=== PATIENT | female | born 1945 | race Caucasian/White ===

== ENCOUNTER → 2017-08-04 | Outpatient (CLI) | payer OTHER ==
[~2017-08-04] MED LIST: ALBU.083IS; ALBU90OI6 INH; AMLO5; Aspirin EC81 MG PO; BUDE.25 NEB; BUME2 PO; BUPR150T2; Bactrim Ds Tab1 EACH PO; Budeprion Xl300 MG; CHOL10002 PO; Diovan160 MG PO; FLUSAL2505 INH; FLUT1DIS5 INH; FURO80; GABA100 PO; GLYB5; HALCION; INSULANPEN SC; LISI20; LORA.5 PO; METF500; MIRT15; NITR.4TPA TOP; OXYC15ER PO; OXYC5; PIOG30 PO; POTA10T PO; POTCHL20ER; PRAV40 PO; Pravastatin Sod80 MG PO; RAME8 PO; Remeron45 MG PO; TIOT18 IH; Tylenol325 MG PO
== END | disposition home or self-care (01) ==
LOC: LAB 15:00 → LAB SHORT 15:00
DX: D51.8 Other vitamin B12 deficiency anemias (principal)
CPT/HCPCS: 82607; 82746

== ENCOUNTER 2018-02-13 11:34 | Emergency (ER) | payer OTHER ==
[~2018-02-13] VITALS: Ht 162.6 cm; Wt 59.0 kg
[2018-02-13 12:13] LABS: BASOPHILS ABSOLUTE AUTO 0.09 K/mm3 (0.00-0.23); BASOPHILS PERCENT AUTO 2 % (0-2); EOSINOPHILS ABSOLUTE AUTO 0.79 K/mm3 (0.00-0.68); EOSINOPHILS PERCENT AUTO 13 % (0-6); Hematocrit 37.3 % (33.0-51.0); Hemoglobin 11.7 g/dL (11.5-16.0); IMMATURE GRAN ABSOLUTE AUTO 0.01 K/mm3 (0.00-0.10); IMMATURE GRAN PERCENT AUTO 0 % (0-1); LYMPHOCYTES ABSOLUTE AUTO 1.84 K/mm3 (0.84-5.20); LYMPHOCYTES PERCENT AUTO 31 % (21-46); MONOCYTES ABSOLUTE AUTO 0.74 K/mm3 (0.16-1.47); MONOCYTES PERCENT AUTO 13 % (4-13); Mean Corpuscular HGB 30.2 pg (26.0-34.0); Mean Corpuscular HGB Conc 31.4 g/dL (31.5-36.5); Mean Corpuscular Volume 96 fL (80-100); Mean Platelet Volume 11.3 fL (9.1-12.4); NEUTROPHILS ABSOLUTE AUTO 2.41 K/mm3 (1.96-9.15); NEUTROPHILS PERCENT AUTO 41 % (41-73); Platelet Count 234 K/mm3 (150-400); RDW Coefficient Variation 13.2 % (11.7-14.2); RDW Standard Deviation 46.5 fL (35.1-46.3); Red Blood Cell Count 3.88 M/mm3 (3.80-5.20); White Blood Cell Count 5.88 K/mm3 (4.00-11.30)
[2018-02-13 12:29] LABS: Albumin, Blood 3.5 g/dL (3.4-5.0); Albumin/Globulin Ratio 0.9 (0.8-1.8); Bilirubin, Total 0.2 mg/dL (0.1-1.0); Calcium, Blood 8.9 mg/dL (8.5-10.1); Creatinine, Blood 1.2 mg/dL (0.40-1.00); Globulin, Blood 3.9 g/dL (2.2-4.0); Potassium, Blood 3.9 mmol/L (3.5-5.5); Total Protein, Blood 7.4 g/dL (6.4-8.2)
== END 2018-02-13 15:56 | disposition home or self-care (01) ==
LOC: ER 11:34
PROVIDERS: Emergency Medicine
DX: L97.929 Non-pressure chronic ulcer of unspecified part of left lower leg with unspecified severity (principal); Z87.891 Personal history of nicotine dependence; Z88.8 Allergy status to other drugs, medicaments and biological substances; Z79.899 Other long term (current) drug therapy; Z79.82 Long term (current) use of aspirin
CPT/HCPCS: 36415; 80053; 83605; 85025; 99283

== ENCOUNTER 2018-02-16 07:40 | Day surgery (SDC) | payer OTHER | END 2018-02-16 22:48 | disposition home or self-care (01) | LOC: WOUND 07:40 | DX: L97.822 Non-pressure chronic ulcer of other part of left lower leg with fat layer exposed (principal); S80.12XA Contusion of left lower leg, initial encounter; J44.9 Chronic obstructive pulmonary disease, unspecified; E11.9 Type 2 diabetes mellitus without complications; I10 Essential (primary) hypertension; M19.90 Unspecified osteoarthritis, unspecified site; M81.0 Age-related osteoporosis without current pathological fracture | CPT/HCPCS: G0463 ==

== ENCOUNTER 2018-02-17 13:30 | Day surgery (SDC) | payer OTHER | END 2018-02-17 22:58 | disposition home or self-care (01) | LOC: WOUND 13:30 | DX: L97.822 Non-pressure chronic ulcer of other part of left lower leg with fat layer exposed (principal); S80.12XD Contusion of left lower leg, subsequent encounter; J44.9 Chronic obstructive pulmonary disease, unspecified; E11.9 Type 2 diabetes mellitus without complications; I10 Essential (primary) hypertension; M19.90 Unspecified osteoarthritis, unspecified site; M81.0 Age-related osteoporosis without current pathological fracture ==

== ENCOUNTER 2018-02-21 00:22 | Day surgery (SDC) | payer OTHER | END 2018-02-21 22:35 | disposition home or self-care (01) | LOC: WOUND 00:22 | DX: L97.822 Non-pressure chronic ulcer of other part of left lower leg with fat layer exposed (principal); S80.12XA Contusion of left lower leg, initial encounter; J44.9 Chronic obstructive pulmonary disease, unspecified; E11.9 Type 2 diabetes mellitus without complications; I10 Essential (primary) hypertension; M19.90 Unspecified osteoarthritis, unspecified site; M81.0 Age-related osteoporosis without current pathological fracture ==

== ENCOUNTER 2018-02-28 00:13 | Day surgery (SDC) | payer OTHER | END 2018-02-28 22:59 | disposition home or self-care (01) | LOC: WOUND 00:13 | DX: Z48.00 Encounter for change or removal of nonsurgical wound dressing (principal); L97.822 Non-pressure chronic ulcer of other part of left lower leg with fat layer exposed; S80.12XA Contusion of left lower leg, initial encounter | CPT/HCPCS: G0463 ==

== ENCOUNTER 2018-03-07 11:00 | Day surgery (SDC) | payer OTHER | END 2018-03-07 22:46 | disposition home or self-care (01) | LOC: WOUND 11:00 | DX: L97.822 Non-pressure chronic ulcer of other part of left lower leg with fat layer exposed (principal); J44.9 Chronic obstructive pulmonary disease, unspecified; E11.9 Type 2 diabetes mellitus without complications; I10 Essential (primary) hypertension; M19.90 Unspecified osteoarthritis, unspecified site; M81.0 Age-related osteoporosis without current pathological fracture | CPT/HCPCS: G0463 ==

== ENCOUNTER 2018-03-21 00:35 | Day surgery (SDC) | payer OTHER | END 2018-03-21 22:38 | disposition home or self-care (01) | LOC: WOUND 00:35 | DX: L97.822 Non-pressure chronic ulcer of other part of left lower leg with fat layer exposed (principal); S80.12XA Contusion of left lower leg, initial encounter; S80.812A Abrasion, left lower leg, initial encounter ==

== ENCOUNTER 2018-03-28 00:13 | Day surgery (SDC) | payer OTHER | END 2018-03-28 22:41 | disposition home or self-care (01) | LOC: WOUND 00:13 | DX: L97.822 Non-pressure chronic ulcer of other part of left lower leg with fat layer exposed (principal); S80.12XA Contusion of left lower leg, initial encounter; S80.812A Abrasion, left lower leg, initial encounter; J44.9 Chronic obstructive pulmonary disease, unspecified; E11.9 Type 2 diabetes mellitus without complications; I10 Essential (primary) hypertension; M19.90 Unspecified osteoarthritis, unspecified site; M81.0 Age-related osteoporosis without current pathological fracture | CPT/HCPCS: G0463 ==

== ENCOUNTER 2018-04-18 00:19 | Day surgery (SDC) | payer OTHER | END 2018-04-18 22:38 | disposition home or self-care (01) | LOC: WOUND 00:19 | DX: L97.822 Non-pressure chronic ulcer of other part of left lower leg with fat layer exposed (principal); S80.12XA Contusion of left lower leg, initial encounter; S80.812D Abrasion, left lower leg, subsequent encounter; J44.9 Chronic obstructive pulmonary disease, unspecified; E11.9 Type 2 diabetes mellitus without complications; I10 Essential (primary) hypertension; M19.90 Unspecified osteoarthritis, unspecified site; M81.0 Age-related osteoporosis without current pathological fracture | CPT/HCPCS: G0463 ==

== ENCOUNTER 2018-04-25 00:13 | Day surgery (SDC) | payer OTHER | END 2018-04-25 22:51 | disposition home or self-care (01) | LOC: WOUND 00:13 | DX: E11.622 Type 2 diabetes mellitus with other skin ulcer (principal); L97.822 Non-pressure chronic ulcer of other part of left lower leg with fat layer exposed; I87.2 Venous insufficiency (chronic) (peripheral); J44.9 Chronic obstructive pulmonary disease, unspecified; E78.5 Hyperlipidemia, unspecified; M81.0 Age-related osteoporosis without current pathological fracture; M19.90 Unspecified osteoarthritis, unspecified site | CPT/HCPCS: G0463 ==

== ENCOUNTER 2020-03-07 08:51 | Day surgery (SDC) | payer OTHER ==
[~2020-03-07] VITALS: Ht 160 cm; Wt 53.0 kg
[~2020-03-07 08:51] MED LIST changes: -Aspirin EC81 MG PO; -BUME2 PO; -Budeprion Xl300 MG; -FLUT1DIS5 INH; -GABA100 PO; -Pravastatin Sod80 MG PO; -RAME8 PO; -Remeron45 MG PO; -Tylenol325 MG PO
--- NOTE | 2020-03-07 13:34 | NUR ---
Dressing to procedure site clean, dry, intact with no visible drainage, swelling, erythema or bruising noted. PT tolerating po fluids/solids. Pt denies nausea
--- NOTE | 2020-03-07 14:50 | NUR ---
DR WILKINS NOTIFIED OF PT ELEVATED BP, GAVE ORDERS TO EXTEND PT STAY OVER NIGHT FOR CONTINUED MONITORING
--- NOTE | 2020-03-07 15:13 | NUR ---
Dressing to procedure site clean, dry, intact with no visible drainage, swelling, erythema or bruising noted. Report given to room 224 nurse
--- NOTE | 2020-03-07 16:07 | NUR ---
Discharge instructions reviewed with patient. Patient verbalizes understanding. Copy given to patient to take home. Pt transfered to surgical floor via rstella for extended stay.
--- NOTE | 2020-03-07 17:30 | NUR ---
SUMMARY PT ARRIVED FROM DAY SURGERY VIA CHERIE, AWAKE, A&OX3, DENIES ANY PAIN OR ANY DISCOMFORT AT THIS TIME, ASHLEY DRAIN INTACT W/ SEROUSANG. IN BULB, CHEST BINDER IN PLACE W/ GAUZE C/D/I, ASSISTED TO BSC TO VOID, 1-2 PERSON PIVOT TRANSFER, PT STATES SHE IS W/C BOUND AT HOME, NO ACUTE CHANGES THIS SHIFT.
--- NOTE | 2020-03-08 18:48 | NUR ---
SHIFT SUMMARY POD 1 R MASTECTOMY AA0X4, PT FORGETFUL AT TIMES AND REPEATS HER STATEMENTS. BED ALARM HAS BEEN ON. PAIN MANAGED PER EMAR. REPORTS MORE BACK PAIN. ASHLEY DRAIN PATENT AND DRAINING SANGUINOUS DRAINAGE. MINIMAL OUT TODAY. PT REPOSITIONING IN BED AND TWO ASSIST UP TO BSC. CALL LIGHT IN REACH. PT PLEASANT AND COOPERATIVE TODAY.
--- NOTE | 2020-03-09 05:47 | NUR ---
SHIFT SUMMARY POD#2. AAOX4. DISCOMFORT CONTROLLED WITH 1 PAIN PILL X2 THIS SHIFT. NO NAUSEA/EMESIS. INCISION TO RIGHT BREAST SCANT DRY SEROUS DRAINAGE. ASHLEY SECURE/COMPRESSED WITH SCANT SEROUS THIS SHIFT. PT UP TO BSC 1 PERSON ASSIST MULTIPLE TIMES THIS SHIFT, TOLERATES WELL. PT RESTING WELL THIS AM WITH CALL LIGHT IN REACH.
--- NOTE | 2020-03-09 16:45 | NUR ---
SHIFT SUMMARY POD 2 R MASTECTOMY PT AA0X4 WITH INTERMITTENT CONFUSION. WILL USE CALL LIGHT AT TIMES. PT REPORTS PAIN THAT SUBSIDES WITH REPOSITIONING, PAIN IN LOWER BACK. PT REPORTS NORMAL FOR HER. ASHLEY DRAIN REMOVED THIS AM. BRUISING NOTED AT SITE. PT TOLERATING PO WELL. GOOD APPETITE. REPORTS NAUSEA THAT RESOLVES WITH REPOSITIONING WELL. PLAN IS FOR DISCHARGE HOME WITH [facility] TODAY AT 1730. CAREGIVER ETTA IS SUPPOSED TO COME IN AND RECIEVE DISCHARGE ORDERS WITH PATIENT. PT UP FREQUENTLY TO BSC TO VOID.
--- NOTE | 2020-03-09 17:19 | NUR ---
DISCHARGE PT DISCHARGED WITH [facility] TO HOME. CAREGIVER ETTA IN TO SEE PT AND RECIEVE DISCHARGE INFORMATION. ALL INFORMATION GONE OVER WITH PT AND CAREGIVER. ALL BELONGINGS SENT WITH CAREGIVER. IV REMOVED PRIOR TO DISCHARGE.
== END 2020-03-09 17:19 | disposition home or self-care (01) ==
LOC: ORSCMMR 08:51 → SURS 08:51 → ORSCMMR 10:30 → ORD 10:30 → SURS 16:06 → ORSCMMR 03-09 17:19
DX: C50.111 Malignant neoplasm of central portion of right female breast (principal); Z17.0 Estrogen receptor positive status [ER+]; J44.9 Chronic obstructive pulmonary disease, unspecified; E11.9 Type 2 diabetes mellitus without complications; E78.5 Hyperlipidemia, unspecified
CPT/HCPCS: 88307; 94640; 94760; A9270; J0690; J1100; J1650; J2405; J2704; J3010; J7120

== ENCOUNTER 2020-03-28 18:30 | Inpatient (IN) | payer MEDICARE, OTHER ==
[~2020-03-28] VITALS: Ht 162.6 cm; Wt 59.5 kg
[2020-03-28] MEDS ORDERED: POTA10T PO (20:40)
[2020-03-28] MEDS ORDERED: BUME2 PO (20:40)
[2020-03-28] MEDS ORDERED: BUPROPION XL150 M1 PO (20:41)
[2020-03-28] MEDS ORDERED: GABA100 PO (20:41)
[2020-03-28] MEDS ORDERED: LOSA50 PO (20:42)
[2020-03-28] MEDS ORDERED: Pravachol40 MG PO (20:43)
[2020-03-28] MEDS ORDERED: REMERON15 M1 PO (20:43)
[2020-03-28] MEDS ORDERED: CLON.1 PO (20:48)
[2020-03-28] MEDS ORDERED: HYDR10 PO (20:49)
[2020-03-28] MEDS ORDERED: FLUT1DIS5 INH (20:51)
[2020-03-28 20:52] LABS: Source, Urine Catheter
[2020-03-28] MEDS ORDERED: Aspirin EC81 MG PO (20:52)
[2020-03-28] MEDS ORDERED: Tylenol325 MG PO (20:53)
[2020-03-28 20:54] LABS: Bilirubin, Urine Neg (Neg); Blood, Urine 1+ (Neg); Glucose Qualitative, Urine 3+ (Neg); Ketones, Urine Neg (Neg); Leukocyte Esterase, Urine 3+ (Neg); Nitrite, Urine Neg (Neg); Protein, Urine 3+ (Neg); Specific Gravity, Urine 1.015 (1.003-1.022); Urobilinogen, Urine NORM (Normal)
[2020-03-28] MEDS ORDERED: BISM300CH PO (20:54)
[2020-03-28] MEDS ORDERED: OXYC5 PO (20:55)
[2020-03-28] MEDS ORDERED: FERREX 150150 M1 PO (20:55)
[2020-03-28] MEDS ORDERED: TEMA15 PO (20:55)
[2020-03-28] MEDS ORDERED: RAME8 PO (20:56)
[2020-03-28 20:57] LABS: Appearance, Urine Hazy (Clear); Color, Urine Yellow (P-Yellow)
[2020-03-28] MEDS ORDERED: TIOT18 INH (20:57)
[2020-03-28 21:00] LABS: Bacteria Many /hpf; Red Blood Cells, Urine Rare /hpf (0-2); Squamous Epithelial Cells Not Seen /hpf (Few); White Blood Cells, Urine 25-50 /hpf (0-5)
[2020-03-28 21:09] LABS: BASOPHILS ABSOLUTE AUTO 0.11 K/mm3 (0.00-0.23); BASOPHILS PERCENT AUTO 1 % (0-2); EOSINOPHILS ABSOLUTE AUTO 0.09 K/mm3 (0.00-0.68); EOSINOPHILS PERCENT AUTO 1 % (0-6); Hematocrit 32.2 % (33.0-51.0); Hemoglobin 10.1 g/dL (11.5-16.0); IMMATURE GRAN ABSOLUTE AUTO 0.08 K/mm3 (0.00-0.10); IMMATURE GRAN PERCENT AUTO 1 % (0-1); LYMPHOCYTES ABSOLUTE AUTO 0.77 K/mm3 (0.84-5.20); LYMPHOCYTES PERCENT AUTO 5 % (21-46); MONOCYTES ABSOLUTE AUTO 0.73 K/mm3 (0.16-1.47); MONOCYTES PERCENT AUTO 5 % (4-13); Mean Corpuscular HGB 29.4 pg (26.0-34.0); Mean Corpuscular HGB Conc 31.4 g/dL (31.5-36.5); Mean Corpuscular Volume 94 fL (80-100); Mean Platelet Volume 12.3 fL (9.1-12.4); NEUTROPHILS PERCENT AUTO 88 % (41-73); Platelet Count 239 K/mm3 (150-400); RDW Coefficient Variation 13.9 % (11.7-14.2); RDW Standard Deviation 47.4 fL (35.1-46.3); Red Blood Cell Count 3.43 M/mm3 (3.80-5.20); White Blood Cell Count 15.08 K/mm3 (4.00-11.30)
[2020-03-28 21:29] LABS: Albumin, Blood 3.1 g/dL (3.4-5.0); Bilirubin, Total 0.3 mg/dL (0.1-1.0); Bun/Creatinine Ratio 21.1 (12.0-20.0); Creatinine, Blood 1.09 mg/dL (0.40-1.00); Globulin, Blood 3.1 g/dL (2.2-4.0); Potassium, Blood 4.3 mmol/L (3.5-5.5); Total Protein, Blood 6.2 g/dL (6.4-8.2)
[2020-03-28 22:37] LABS: Influenza A, PCR NEGATIVE (NEGATIVE); Influenza B, PCR NEGATIVE (NEGATIVE); Resp Syncytial Virus, PCR NEGATIVE (NEGATIVE); SARS-Cov-2 (COVID-19) PCR, MMC NEGATIVE (NEGATIVE)
[2020-03-29 05:18] LABS: BASOPHILS ABSOLUTE AUTO 0.06 K/mm3 (0.00-0.23); BASOPHILS PERCENT AUTO 0 % (0-2); EOSINOPHILS PERCENT AUTO 0 % (0-6); Hematocrit 28.4 % (33.0-51.0); Hemoglobin 8.7 g/dL (11.5-16.0); IMMATURE GRAN ABSOLUTE AUTO 0.06 K/mm3 (0.00-0.10); IMMATURE GRAN PERCENT AUTO 0 % (0-1); LYMPHOCYTES ABSOLUTE AUTO 0.57 K/mm3 (0.84-5.20); LYMPHOCYTES PERCENT AUTO 4 % (21-46); MONOCYTES ABSOLUTE AUTO 0.58 K/mm3 (0.16-1.47); MONOCYTES PERCENT AUTO 4 % (4-13); Mean Corpuscular HGB 29.4 pg (26.0-34.0); Mean Corpuscular HGB Conc 30.6 g/dL (31.5-36.5); Mean Corpuscular Volume 96 fL (80-100); Mean Platelet Volume 12.5 fL (9.1-12.4); NEUTROPHILS ABSOLUTE AUTO 12.09 K/mm3 (1.96-9.15); NEUTROPHILS PERCENT AUTO 91 % (41-73); Platelet Count 265 K/mm3 (150-400); RDW Standard Deviation 49.1 fL (35.1-46.3); Red Blood Cell Count 2.96 M/mm3 (3.80-5.20); White Blood Cell Count 13.36 K/mm3 (4.00-11.30)
[2020-03-29 05:38] LABS: Bilirubin, Total 0.4 mg/dL (0.1-1.0); Bun/Creatinine Ratio 23.2 (12.0-20.0); Calcium, Blood 7.7 mg/dL (8.5-10.1); Creatinine, Blood 1.12 mg/dL (0.40-1.00); Globulin, Blood 3.1 g/dL (2.2-4.0); Potassium, Blood 4.4 mmol/L (3.5-5.5); Total Protein, Blood 6.1 g/dL (6.4-8.2)
--- NOTE | 2020-03-29 08:11 | NUR ---
SHIFT SUMMARY: PT ADMITTED AT APPROX 0020 FOR A R FEMUR FX. SPLINT IN PLACE TO RLE. PT CONTINUES TO BE CONFUSED. ALERT TO SELF ONLY. UNABLE TO OBTAIN MEDICAL HISTORY OR CURRENT LIVING ARRANGEMENT. PT INCOMPREHENSABLE AT TIMES R/T NOT HAVING ANY TEETH. UPON ASSESSMENT, PT NOTED TO HAVE APPROX 9 STERI STRIPS TO RT BREAST. PT REPORTS HAVING SURGERY 3 DAYS AGO. SITE APPEARS WNL. BEAR CATHETER IN PLACE AND DRAINING CLOUDY, FOUL SMELLING URINE. URINE BEING CULTURED AND PT RECIEVED ABX IN ER. PT MEDICATED WITH 50MCG OF FENTANYL ONCE. PT HAS BEEN KEPT NPO SINCE MIDNIGHT. PLAN FOR DR. ESTRADA TO SEE PATIENT THIS MORNING.
--- NOTE | 2020-03-29 12:03 | NUR ---
03/29/20 1203 Melissa Vera IV TO RIGHT AC INFLITRATED UPON INDUCTION. ATTEMPTED TWO PERIPHERAL IV'S WITH NO SUCCESS. JAMAL BERNABE RN INTO OR AND PLACED A POWERGLIDE IN LEFT UPPER ARM.
[2020-03-29 17:18] LABS: Hematocrit 23.5 % (33.0-51.0); Hemoglobin 7.2 g/dL (11.5-16.0)
--- NOTE | 2020-03-29 18:48 | NUR ---
LOW BP ROUNDED ON PT AND CHECKED VS AT 1652; BP 94/46. PT WAS ASYMPTOMATIC BUT REQUESTED PAIN MEDICATION. PT AND HER SON WERE EDUCATED THAT PAIN MEDICATION CAN CAUSE THE BLOOD PRESSURE TO DECREASE. DR. CUADRA WAS NOTIFIED OF LOW BP AND REQUEST FOR PAIN MEDICATION. H&H ORDERED AND 500ML BOLUS OF NORMAL SALINE STARTED PER DR. CUADRA. BOLUS WAS COMPLETED AND BP RE-CHECKED, BP HAD IMPROVED TO 116/51. BP WAS RE-CHECKED AND HAD DROPPED TO 84/47, BP AGAIN CHECKED BUT ON THE LLE BP SHOWED 91/46, PT REPORTED FEELING DIZZY AND HAD BECOME MORE SOMNOLENT. MUSIC LIBRARIAN CAIO NOTIFIED OF CONTINUED LOW BP. DR. CUADRA NOTIFIED OF CONTINUED LOW BP AND CONCERN ABOUT BOLUSES SINCE PT HAS A HX OF HEART FAILURE. REQUESTED THAT DR. CUADRA SEE PATIENT. DR. CUADRA ROUNDED ON PATIENT AND PT REPORTED THAT SHE WANTED TO BE ABLE TO SAY GOODBYE TO HER FAMILY. AT THAT TIME PLAN WAS TO TRANSFER TO ICU. SAP BPC DEVELOPER JOSIAS TALKED WITH THE PATIENT AND HER SON REGARDING WHAT WOULD BE INVOLVED IN TREATING THIS PATIENT IN ICU. JOSIAS RN PLACED ORDERS FOR COMFORT CARE AND PATIENT WILL REMAIN ON SURGICAL FLOOR AT THIS TIME. FAMILY AND PATIENT INVOLVED IN DECISIONS AND EDUCATION GIVEN BY THIS RN.
--- NOTE | 2020-03-29 19:17 | NUR ---
COMFORT CARE DISCUSSION DISCUSSED WITH PT AND PT'S SON AT BEDSIDE REGARDING PT'S HYPOTENSION AND PAIN CONTROL CONCERNS. DISCUSSED THAT PROVIDING PAIN MEDS COULD DECREASE BP TO A DANGEROUSLY LOW LEVEL. DISCUSSED POSSIBILITY OF NEEDING CENTRAL LINE AND VASOPRESSORS TO SUPPORT BP IN ORDER TO SUFFICIENTLY MEDICATE FOR PAIN. PT'S SON AND PT BOTH STATE THEY WOULD NOT WANT THIS, AND JUST WANT TO FOCUS ON COMFORT. PT STATES SHE JUST WANTS TO SEE HER FAMILY AND FOR THE PAIN TO GO AWAY. PT REFUSING BLOOD PRODUCTS DUE TO [employer]. DISCUSSED THAT NOT TREATING HYPOTENSION AND JUST MANAGING PAIN COULD RESULT IN END OF LIFE FOR PT. BOTH PT AND PT'S SON VERBALIZE CLEAR UNDERSTANDING, AND WISH TO PROCEED WITH COMFORT MEASURES ONLY. CALLED TO DR. CUADRA AND DISCUSSED THIS CONVERSATION. ORDERS RECEIVED FOR COMFORT MEASURES AT THIS TIME.
--- NOTE | 2020-03-29 19:49 | NUR ---
REPOSITIONING PT HAS REFUSED REPOSITIONING T/O THE SHIFT. HER FAMILY REPORTS SHE STAYS SITTING UP AND LEANS TO HER RIGHT SIDE AT HOME. PT WAS EDUCATED ABOUT THE RISK FOR SKIN BREAKDOWN AND CONTINUED TO ADAMANTLY REFUSED REPOSITIONING. PT'S SON WAS ALSO PRESENT AND ATTEMPTED TO ENCOURAGE PATIENT TO REPOSITION AND SHE CONTINUED TO DECLINE REPOSITIONING.
--- NOTE | 2020-03-30 02:47 | NUR ---
PT RESTING W/ FAMILY AT THE BEDSIDE. FAMILY DENIES NEED FOR ANYTHING AT THIS TIME. WILL CONTINUE TO MONITOR.
--- NOTE | 2020-03-30 03:33 | NUR ---
PT RESTING COMFORTABLY AT THIS TIME, FAMILY AT THE BEDSIDE, RECENT BP SHOWS SIGNS OF IMPROVEMENT. FAMILY DENIES NEED FOR ANYTHING AT THIS TIME, WILL CONTINUE TO MONITOR.
--- NOTE | 2020-03-30 07:20 | NUR ---
AM ASSESSMENT PT RESTING QUIETLY WITH HER EYES CLOSED. SHE OPENS HER EYES WHEN SPOKEN TO BUT APPEARS TO QUICKLY FALL BACK TO SLEEP. PT UNABLE TO WAKE UP ENOUGH TO TELL ME HER NAME. FAMILY AT THE BEDSIDE. PT RESTING IN A POSITION COMFORTABLE TO HER. DISCUSSED WITH FAMILY PLAN OF CARE AND OPTIONS. DISCUSSED OPTION TO TAKE PT OFF COMFORT CARE SINCE HER BLOOD PRESSURE HAS IMPROVED. INFORMED FAMILY THAT THEY CAN FURTHER DISCUSS THIS WITH DR. CUADRA WHEN HE ROUNDS AND EXPLORE OPTIONS WITH FAMILY FOR PLAN OF CARE. WILL CONTINUE TO MONITOR.
--- NOTE | 2020-03-30 07:28 | NUR ---
SHIFT SUMMARY S/P R HIP FX REPAIR, A/O X4 BUT FORGETFUL, PT CHANGED TO COMFORT CARE DURING SHIFT CHANGE, TOLERATING PO, PAIN WELL CONTROLLED PER EMAR, VOIDING VIA BEAR, FAMILY AT BEDSIDE T/O SHIFT, PT VSS SEEM TO BE IMPROVING, RECOMMENDING REMOVING COMFORT CARE ORDERS. CALL LIGHT IN REACH, REPORT GIVEN TO DAY RN.
--- NOTE | 2020-03-30 10:00 | NUR ---
ROUNDED ON PT, FAMILY REPORTS SHE WANTED REPOSITIONED. SUERO PAD CHANGED. ALLEVYN DRESSING PLACED ON COCCYX AND MEPILEX DRESSINGS PLACE ON HEALS TO PREVENT SKIN BREAKDOWN. PT BECOMES PAINFUL AND ANXIOUS WITH REPOSITIONING. SHE WAS PRE-MEDICATED FOR MOVEMENT. PT DOES NOT TOLERATE REPOSITIONING WELL. PT WAS REASSURED BY FAMILY AND STAFF. PT'S FAMILY APPEARS VERY ANXIOUS ABOUT THE PATIENTS PAIN. FAMILY CHOOSES TO STEP OUT OF THE ROOM WHEN REPOSITIONING IS REQUIRED.
--- NOTE | 2020-03-30 12:08 | NUR ---
PT RESTING ON HER L SIDE, PT AND FAMILY DECLINED ASSISTANCE WITH REPOSITIONING. WILL CONTINUE TO MONITOR.
--- NOTE | 2020-03-30 13:06 | NUR ---
PT'S FAMILY DISCUSSED KEEPING PT ON COMFORT CARE VS. TAKING HER OFF COMFORT CARE. THE FAMILY DECIDED TO KEEP THE PATIENT ON COMFORT CARE AT THIS TIME. PALLIATIVE CARE CONSULT PLACED AND DR. CUADRA NOTIFIED OF FAMILIES REQUEST. PT REMAINS ORIENTED ONLY TO HER FAMILY AND HERSELF.
--- NOTE | 2020-03-30 15:16 | NUR ---
PT RESTING ON HER RIGHT SIDE. ENCOURAGED PT AND FAMILY TO ALLOW REPOSITIONING. PT WAS MEDICATED FOR PAIN. PLAN TO REPOSITION AFTER PAIN MEDICATION BEGINS TO WORK.
--- NOTE | 2020-03-30 17:03 | NUR ---
PT WAS ASSISTED TO SUPINE POSITION WITH HOB ELEVATED. PT STILL LEANING TOWARD THE LEFT BUT LESS PRESSURE ON THAT SIDE. UNABLE TO POSITION PT TO THE RIGHT SIDE R/T HIGH ANXIETY WITH REPOSITIONING. PT BECOME VERY ANXIOUS AND YELLS OUT WHEN REPOSITIONED. PT HAS CONTINUED TO BE CONFUSED AND YELLS OUT THE NAMES OF HER HOME CAREGIVERS. SHE WAS PREMEDICATED WITH ATIVAN PRIOR TO REPOSITIONING. PT DOES NOT RESPOND TO STAFF REASSURANCE OR INSTRUCTION WHILE REPOSITIONING. PT AND FAMILY ARE RESISTANT TO REPOSITIONING. THEY HAVE BEEN EDUCATED ABOUT THE RISKS OF SKIN BREAKDOWN IF PT REMAINS IN THE SAME POSITION. PT DID APPEAR TO RELAX QUICKLY AFTER REPOSITIONING WAS FINISHED. IT APPEARS THAT ATIVAN HELPED HER TO RELAX MORE QUICKLY. WILL CONTINUE TO MONITOR.
--- NOTE | 2020-03-30 19:08 | NUR ---
SHIFT SUMMARY PT REMAINS ON COMFORT CARE TODAY. SHE HAS RESTED IN BED T/O THE DAY, FAMILY AT THE BEDSIDE FOR SUPPORT. SHE PANICS WITH ALL ATTEMPTS TO REPOSITION. FAMILY IS ALSO ANXIOUS ABOUT REPOSITIONING AND WANTS HER TO BE DISTURBED LITTLE POSSIBLE. PT'S STATURE AND CONTRACTURES HAVE ALSO MADE REPOSITIONING DIFFICULT. PAIN HAS BEEN MANAGED WITH ROXANOL. ANXIETY HAS HELPED TO MANAGE ANXIETY. REPORT GIVEN TO KRANTHI WHITE.
--- NOTE | 2020-03-31 05:49 | NUR ---
COMFORT ROUNDING @ 0222 PT APPEARED TO BE ANXIOUS WHEN TRYING TO PERFORM ORAL CARE, GAVE ATIVAN PER EMAR, PT SETTLED DOWN AND ALLOWED CARE TO BE COMPLETED, FAMILY AT BEDSIDE T/O THE CARE PROVIDED, ADJUSTED PILLOWS AROUND PT TO HELP WITH REPOSITIONING. FAMILY DENIES NEEDING ANYTHING AT THIS TIME, WILL CONTINUE TO MONITOR.
--- NOTE | 2020-03-31 10:48 | NUR ---
Comfort Care Visit Pt resting in bed upon arrival. Pt is mostly non verbal with mild moaning noted. Pt appears anxious as evidenced by movement of head and moaning. Spoke with Bedside RN Catarino and discussed case. Reviewed comfort medications. Spoke with Dr Gtz prior to Pt visit and discussed case. Palliative Care will remain available for symptom management and therapeutic visits. Will F/U when family is present.
--- NOTE | 2020-03-31 15:09 | NUR ---
PT ALLOWED SLIGHT REPOSITIONING, WOULD GRAB HAND WHEN ATTEMPTING TO MOVE HER. REFUSED TO OPEN HER MOUTH FOR ORAL CARE BUT SAID SHE WAS COMFORTABLE IN THE POSITION SHE WAS IN. PER FAMILY MEMBER IN ROOM, PT STAYS IN THAT POSITION AT HOME.
--- NOTE | 2020-03-31 17:23 | NUR ---
PT RESTING IN BED DURING SHIFT, SHE HAS BEEN REFUSING CARE. ORAL CARE ATTEMPTED MULTIPLE TIMES. PT WILL HIDE MOUTH. FAMILY IN ROOM WAS ABLE TO PROVIDE MOUTH SWABS TO PATIENT. ABLE TO REPOSITION PATIENT OCCASIONALLY, SHE WOULD REPOSITION HERSELF BACK TO HER LEFT SIDE QUICKLY AND REPORTED PAIN WITH REPOSITIONING. MEDICATED PER EMAR. FOR ANXIETY AND PAIN.
--- NOTE | 2020-03-31 18:10 | NUR ---
F/U Comfort Care Visit Pt resting in bed with her eyes closed. Pt appears comfortable with no S/S of distress at this time. Pt's son Viraj at bedside. Offered therapeutic listening and validated concerns. Answered questions and continued therapeutic listening. Discussed the potential of needing to consider hospice if Pt does not transition. Viraj expresses appreciation of visit and reports no other concerns at this time. Spoke with Bedside RN Catarino and discussed case. Palliative Care will remain available.
--- NOTE | 2020-03-31 23:35 | NUR ---
FAMILY AT BEDSIDE PROVIDING ORAL CARE. NO MOTTLING OR ALIYAH-NAVARRO RESPIRATIONS NOTED, MILD LE EDEMA. PT DOES MOVE HEAD SIDE TO SIDE OCCASIONALLY. FAMILY REPORTS PT ALWAYS LEANS TO THE LEFT AND THAT ATTEMPTS TO REPOSITION HAVE CAUSED SEVERE PAIN AND HAVE BEEN FUTILE, STATING THAT THE PT RETURNS TO THE SAME POSITION. RHINA TO R LEG C/D&I. CHEMA PATENT. WILL MEDICATE PER APR.
--- NOTE | 2020-03-31 23:38 | NUR ---
FAMILY REPORTS INCREASED AGITATION PARTICULARLY WITH THE NC AND WITNESSING THE PT GRIPPING THE BEDRAIL. MEDICATED PER APR.
--- NOTE | 2020-04-01 01:00 | NUR ---
PT RESTING QUIETLY. FAMILY STATES THEY FEEL PT IS COMFORTABLE AT THIS TIME.
--- NOTE | 2020-04-01 03:22 | NUR ---
MEDICATED FOR ANXIETY PER FAMILY REQUEST. PT WAS HOLDING ONTO THE BED RAIL OCCASIONALLY AND TURNING HER HEAD. DROOL NOTED ON THE PILLOWCASE. NO CHANGE IN RESPIRATIONS.
--- NOTE | 2020-04-01 06:18 | NUR ---
SHIFT SUMMARY: PT TURNED AND REPOSITIONED D/T WET CHUX. BEAR REPOSITIONED AND DRAINED APPROX 750 ML OF URINE, SOME SEDIMENT NOTED. AQUACELL TO R HIP C/D&I. PT MINIMALLY RESPONSIVE, OPENS EYES ON OCCASION BUT HAS NOT SPOKEN THIS SHIFT. FAMILY AT BEDSIDE PROVIDING FREQUENT ORAL CARE. NO BM THIS SHIFT. WILL REPORT TO DAY SHIFT RN.
--- NOTE | 2020-04-01 11:00 | NUR ---
Pt resting in bed with her eyes closed upon arrival. Pt is non responsive and appears comfortable with no S/S of distress at this time. Pt's daughter Felicia and Felicia's spouse at bedside. Offered therapeutic listening and answered questions. Educated on potential S/S Pt may experience and the importance of speaking with Pt and reasurrance. Family expresses appreciation of visit and reports no concerns at this time.l Spoke with Bedside RN Catarino and discussed case. Pt has required less comfort medications today. Palliative Care will remain available.
--- NOTE | 2020-04-01 11:51 | NUR ---
attempting to reposition pt. family requests she stay on right side, she has been resting comfortably. pt tolerates small movements at times but often goes back to original position.
--- NOTE | 2020-04-01 15:35 | NUR ---
PT TOLERATED REPOSITIONING AFTER PREMEDICATING FOR PAIN. FAMILY AT BEDSIDE DURING SHIFT. PT HAS KEPT NASAL CANULA IN MOUTH TODAY. BEAR PATENT AND DRAINING DURING SHIFT. NO KINKS SEEN IN TUBING. FAMILY HAS BEEN PROVIDING ORAL CARE FOR PATIENT DURING SHIFT. PT NOT OPENING HER EYES TO RESPOND TO QUESTIONS TODAY.
--- NOTE | 2020-04-01 17:19 | NUR ---
Comfort Care Visit Pt resting in bed upon arrival and is non responsive. Pt's repiratory rate slightly increased but does not appear to be labored. Pt appears comfortable with no S/S of distress at this time. Pt's son Viraj at bedside. Offered therapeutic listening and educated on possible S/S Pt may experience. Viraj expresses appreciation of visit and reports no concerns at this time. Pt appears to be transitioning. Palliative Care will remain available for symptom management and supportive visits.
--- NOTE | 2020-04-01 17:59 | NUR ---
SHIFT SUMMARY PT HAS BEEN TOLERATING REPOSITIONING WELL TODAY. MEDICATED FOR PAIN PER EMAR. RESPIRATIONS HAVE REMAINED UNCHANGED EVEN AFTER MEDICATION. FAMILY IN ROOM DURING THE ENTIRE SHIFT. HAVE BEEN HELPING WITH ORAL CARE FREQUENTLY.
--- NOTE | 2020-04-01 19:30 | NUR ---
ASSUMED CARE PT REPOSITIONED AT THIS TIME PER FAMILY REQUEST, LINEN ADJUSTED, ORAL CARE COMPLETED. O2 VIA NC IN PT'S MOUTH "FOR COMFORT" PER DAUGHTER. SHALLOW ALIYAH STOKE BREATHING PATTERN NOTED. PT WILL MOVE AWAY FROM ORAL SWABS ON OCCASION BUT WILL NOT RESPOND TO VERBAL STIMULATION. WCTM
--- NOTE | 2020-04-02 08:15 | NUR ---
SUMMARY FAMILY REMAINS AT THE BEDSIDE. REPOSITIONING DONE AT THEIR REQUEST & PRN. PRN MEDICATIONS GIVEN PER EMAR.
--- NOTE | 2020-04-02 08:34 | NUR ---
COMFORT CARE. THIS RN TO ASSESS FOR COMFORT AND END OF LIFE CARE. PATIENT HAS RAPID SHALLOW RESPIRATIONS. DOES NOT APPEAR TO BE IN DISTRESS. FAMILY HAS DECLINED PERSONAL CARE FOR PATIENT AND TURNING. EDUCATED ON END OF LIFE PROCESS AND PROVIDED SOCIAL SUPPORT NEEDED. WILL CONT TO MONITOR.
--- NOTE | 2020-04-02 09:52 | NUR ---
Comfort Care Visit Pt resting in bed with her eyes closed and is non responsive. Family at bedside. Family expresses no cocnerns at this time. Pt appears comfortable with no S/S of distress this time. Pt appears to be actively dying. Spoke with Bedside CINDY Martins and discussed case. Palliative Care will remain available.
--- NOTE | 2020-04-02 12:59 | NUR ---
PATIENTS FAMILY CALLED TO NURSING PATIENT STOPPED BREATHING. TIME OF CALLED AT 1250. NOTIFIED. J2EE CONSULTANT NOTIFIED. PATIENTS FAMILY AT BEDSIDE AND WILL REMAIN WITH PATIENT UNTIL HOME COMES. NOT[facility]. WILL REMAIN AVAILABLE FOR FMAILY SUPPORT NEEDED
--- NOTE | 2020-04-02 16:11 | NUR ---
Spiritual care note: Present with family at [facility]. Provided affirmation of love and gentle service counselor to good effect. They were tearful and appropriate. They are Oriental orthodox. [facility] was selected by dtr for final arrangements.
== END 2020-04-02 15:00 | DRG 481 ==
LOC: ER 18:30 → SURS 22:06
PROVIDERS: Emergency Medicine; Internal Medicine; ADMIT Internal Medicine
PROC: 0QS804Z Reposition Right Femoral Shaft with Internal Fixation Device, Open Approach (ICD-10-PCS; principal; 2020-03-30)
DX: S72.21XA Displaced subtrochanteric fracture of right femur, initial encounter for closed fracture (principal); S22.41XA Multiple fractures of ribs, right side, initial encounter for closed fracture; I50.32 Chronic diastolic (congestive) heart failure; N17.9 Acute kidney failure, unspecified; Z79.82 Long term (current) use of aspirin; E11.22 Type 2 diabetes mellitus with diabetic chronic kidney disease; Z20.822 Contact with and (suspected) exposure to COVID-19; N18.30 Chronic kidney disease, stage 3 unspecified; Z66 Do not resuscitate; J44.9 Chronic obstructive pulmonary disease, unspecified; Z51.5 Encounter for palliative care; I12.9 Hypertensive chronic kidney disease with stage 1 through stage 4 chronic kidney disease, or unspecified chronic kidney disease; E11.65 Type 2 diabetes mellitus with hyperglycemia; Z90.11 Acquired absence of right breast and nipple; D63.8 Anemia in other chronic diseases classified elsewhere; W19.XXXA Unspecified fall, initial encounter; Y93.9 Activity, unspecified; Y92.9 Unspecified place or not applicable; E86.0 Dehydration
CPT/HCPCS: 0241U; 27232; 36415; 51702; 71045; 72170; 73552; 80053; 81001; 82947; 85014; 85018; 85025; 87077; 87086; 87186; 94640; 94760; 96374-59; 96375-59; 99285-25; A9270; C1713; C1751; C1769; J0690; J0696; J1100; J1170; J2060; J2270; J2370; J2405; J2550; J2704; J3010; J7030; J7050